=== PATIENT | male | born 1975 | race American Indian/Alaskan Native ===

== ENCOUNTER 2018-10-14 08:07 | Emergency (ER) | payer OTHER ==
[2018-10-14 08:14] VITALS: BP 169/94
--- NOTE | 2018-10-14 08:21 | Emergency Department Report ---
Upper Extremity - [facility] Chief Complaint: Extremity Injury, Upper Stated Complaint: R ELBOW/ARM PAIN Time Seen by Provider: 10/14/18 08:18 ED Review of Systems ROS: Stated complaint: R ELBOW/ARM PAIN Other details as noted in HPI ED Past Medical Hx - Past Medical History Previous Medical History?: Yes Additional medical history: chronic back pain - Surgical History Past Surgical History?: No - Social History Smoking Status: Current Every Day Smoker Substance Use Type: Alcohol, Marijuana - Medications Home Medications: Home Medications Medication Instructions Recorded Confirmed Last Taken Type HYDROcodone/APAP 7.5-325 [[place] 1 each PO Q6HR PRN #30 tablet 12/15/13 Unknown Rx 7.5/325 mg] Acetaminophen/Codeine 1 tab PO Q6H PRN #10 tab 05/19/14 Unknown Rx [Acetaminophen-Codeine #3 TAB] Cyclobenzaprine [Flexeril 10mg] 10 mg PO TID PRN #20 tablet 05/19/14 Unknown Rx Ibuprofen [Motrin] 800 mg PO Q8H PRN #30 tablet 05/19/14 Unknown Rx Ibuprofen [Motrin 800 MG tab] 800 mg PO TID PRN #12 tablet 10/14/18 Unknown Rx Upper Extremity Exam - Exam General: Vital signs noted. No distress. Alert and acting appropriately. ED Course Vital Signs 10/14/18 08:10 Temperature 98 F Pulse Rate 84 Respiratory 18 Rate Blood Pressure 169/94 O2 Sat by Pulse 98 Oximetry ED Medical Decision Making - Radiology Data Radiology results: report reviewed X-ray of right elbow to include proximal forearm and distal arm dictated by radiologist and report reviewed by myself. Please see details below Findings [facility] [address] [place] [address] XRay Report Signed Patient: LI MCDANIELS MR#: [id number] 4 : 1975 Acct:[id number] Age/Sex: 43 / M ADM Date: 10/14/18 Loc: ED Attending Dr: Ordering Physician: DERRICK MARCELO Date of Service: 10/14/18 Procedure(s): XR elbow 3+V RT Accession Number(s): [id number] cc: DERRICK MARCELO Fluoro Time In Minutes: PROCEDURE: XR ELBOW 3+V RT TECHNIQUE: Right elbow radiographs, 3 views. HISTORY: Injury with pain and swelling. COMPARISONS: None currently available. FINDINGS: There is no acute fracture. There is no evidence for healing fracture. There is no acute dislocation. No significant arthrosis. Anterior and posterior fat pads are unremarkable. No significant joint effusion. Posterior olecranon enthesophyte. There is no cortical destruction to suggest osteomyelitis. There are no suspicious osseous lesions. There are no radiopaque foreign objects. IMPRESSION: * No acute osseous findings. This document is electronically signed by Jj Santiago MD., October 14 2018 09:19:42 AM ET Transcribed By: TYM Dictated By: JJ SANTIAGO MD Electronically Authenticated By: JJ SANTIAGO MD Signed Date/Time: 10/14/18920 DD/ 1 TD/TT: 10/14/18845 - Medical Decision Making 43-year-old male here for right elbow pain 4 days after heavy lifting at work. He reports some swelling. Patient was evaluated by myself and he has no swelling in but he does have tenderness to palpate to his distal arm and proximal forearm. Normal range of motion in all extremities without physical findings for vascular abnormalities. Patient was given Motrin in the emergency room which helped his pain. X-ray finding in this report no acute abnormalities or soft tissue swelling. This was discussed with patient to include diagnosis, treatment plan, medication, rice protocol and x-ray and he voiced understanding. Patient discharged home in stable condition with prescriptions for Motrin to take with food and to follow-up with primary care physician in 2-3 days and if he does not have one to follow-up with outside Medical Center. Patient is stable and pain-free and discharged home in stable condition - Differential Diagnosis fracture versus dislocation versus strain, MSK pain Critical care attestation.: If time is entered above; I have spent that time in minutes in the direct care of this critically ill patient, excluding procedure time. ED Disposition Clinical Impression: Muscle strain of right upper extremity Qualifiers: Encounter type: initial encounter Qualified Code(s): S46.911A - Strain of unspecified muscle, fascia and tendon at shoulder and upper arm level, right arm, initial encounter Disposition: - TO HOME OR SELFCARE Is pt being admited?: No Does the pt Need Aspirin: No Condition: Stable Instructions: Muscle Strain (ED), RICE Therapy (ED), Arthralgia (ED) Additional Instructions: Please hold this and instruction rice therapy. Take Motrin for pain and please ensure he takes this medication with food as it can cause irritation to stomach lining. Please follow-up with your primary care physician in 2-3 days and if he do not have one he can follow-up with outside Medical Center. If he condition worsens, to include redness, swelling, limited movement to affect his area, please return to emergency room [facility] Prescriptions: Ibuprofen [Motrin 800 MG tab] 800 mg PO TID PRN #12 tablet PRN Reason: Pain Referrals: [facility] [Outside] - 2-3 Days Forms: Work/School Release Form(ED)
[2018-10-14] MEDS ORDERED: IBUPROFEN PO ONE (08:23)
--- NOTE | 2018-10-14 09:21 | XRay Report ---
PROCEDURE: XR ELBOW 3+V RT TECHNIQUE: Right elbow radiographs, 3 views. HISTORY: Injury with pain and swelling. COMPARISONS: None currently available. FINDINGS: There is no acute fracture. There is no evidence for healing fracture. There is no acute dislocation. No significant arthrosis. Anterior and posterior fat pads are unremarkable. No significant joint effusion. Posterior olecranon enthesophyte. There is no cortical destruction to suggest osteomyelitis. There are no suspicious osseous lesions. There are no radiopaque foreign objects. IMPRESSION: * No acute osseous findings. This document is electronically signed by Jj Garzon MD., October 14 2018 09:19:42 AM ET
== END 2018-10-14 10:06 | disposition home or self-care (01) ==
LOC: ED 08:07
DX: S46.911A Strain of unspecified muscle, fascia and tendon at shoulder and upper arm level, right arm, initial encounter (principal); G89.29 Other chronic pain; F17.200 Nicotine dependence, unspecified, uncomplicated; F12.10 Cannabis abuse, uncomplicated; X58.XXXA Exposure to other specified factors, initial encounter; Y93.89 Activity, other specified; Y92.89 Other specified places as the place of occurrence of the external cause; Y99.8 Other external cause status

== ENCOUNTER 2018-12-27 07:47 | Emergency (ER) | payer SELFPAY ==
[2018-12-27] MEDS ORDERED: ASPIRIN PO ONE (08:02)
--- NOTE | 2018-12-27 08:26 | XRay Report ---
CHEST 1 VIEW INDICATION: Chest Pain. COMPARISON: None FINDINGS: Support devices: None. Heart: Within normal limits. Lungs/Pleura: No acute air space or interstitial disease. Additional findings: None. IMPRESSION: Normal AP chest. Signer Name: Chirag Young Jr, MD Signed: 12/27/2018 8:22 AM Workstation Name: [id number]
[2018-12-27 09:00] LABS: Basophils % (Auto) 0.5 % (0.0-1.8); Eosinophils # (Auto) 0.1 K/mm3 (0.0-0.4); Eosinophils % (Auto) 1.8 % (0.0-4.3); Hemoglobin 16.4 gm/dl (11.8-15.2); Lymphocytes # (Auto) 0.9 K/mm3 (1.2-5.4); Lymphocytes % (Auto) 19.6 % (13.4-35.0); Mean Corpuscular HGB Conc 33 % (32-34); Mean Corpuscular Volume 92 fl (84-94); Monocytes # (Auto) 0.5 K/mm3 (0.0-0.8); Monocytes % (Auto) 11.8 % (0.0-7.3); Platelet Count 233 K/mm3 (140-440); Red Blood Count 5.33 M/mm3 (3.65-5.03); Red Cell Distribution Width 15.9 % (13.2-15.2)
[2018-12-27 09:23] LABS: BUN/Creatinine Ratio 10; Blood Urea Nitrogen 9 mg/dL (9-20); Calcium 8.8 mg/dL (8.4-10.2); Hemolysis Index 10
--- NOTE | 2018-12-27 11:07 | Emergency Department Report ---
ED Chest Pain HPI - General Chief Complaint: Chest Pain Stated Complaint: CHEST PAIN Time Seen by Provider: 12/27/18 10:01 Source: patient Mode of arrival: Ambulatory Limitations: No Limitations - History of Present Illness Initial Comments: Mr. Alexandre is a healthy 43-year-old male with history of tobacco abuse who presents with left-sided chest pain sharp after sudden lifting movement at work. Pain is reducible with certain positions. Denies shortness of breath. Denies palpitations. Denies nausea. No previous history of cardiac disease. No history of hypertension dyslipidemia diabetes mellitus. No family history of heart disease. Has had previous history of chest strain with lifting at work. MD Complaint: chest pain -: Sudden Onset: during rest Pain Location: left chest Severity scale (0 -10): 5 Quality: sharp Consistency: constant Improves With: nothing Worsens With: movement Treatments Prior to Arrival: none - Related Data Previous Rx's Medication Instructions Recorded Last Taken Type HYDROcodone/APAP 7.5-325 [[place] 1 each PO Q6HR PRN #30 tablet 12/15/13 Unknown Rx 7.5/325 mg] Acetaminophen/Codeine 1 tab PO Q6H PRN #10 tab 05/19/14 Unknown Rx [Acetaminophen-Codeine #3 TAB] Cyclobenzaprine [Flexeril 10mg] 10 mg PO TID PRN #20 tablet 05/19/14 Unknown Rx Ibuprofen [Motrin] 800 mg PO Q8H PRN #30 tablet 05/19/14 Unknown Rx Ibuprofen [Motrin 800 MG tab] 800 mg PO TID PRN #12 tablet 10/14/18 Unknown Rx Allergies Allergy/AdvReac Type Severity Reaction Status Date / Time No Known Allergies Allergy Unverified 12/15/13 12:41 Heart Score - HEART Score History: Slightly suspicious EKG: Non-specific Age: < 45 Risk factors: 1-2 risk factors Troponin: < normal limit HEART Score: 2 ED Review of Systems ROS: Stated complaint: CHEST PAIN Other details as noted in HPI Comment: All other systems reviewed and negative Constitutional: denies: fever, malaise Respiratory: denies: cough Cardiovascular: chest pain ED Past Medical Hx - Past Medical History Previous Medical History?: No Additional medical history: chronic back pain - Surgical History Past Surgical History?: No - Family History Family history: hypertension, other (father with history of colon cancer) - Social History Smoking Status: Current Every Day Smoker Substance Use Type: Alcohol, Marijuana - Medications Home Medications: Home Medications Medication Instructions Recorded Confirmed Last Taken Type HYDROcodone/APAP 7.5-325 [[place] 1 each PO Q6HR PRN #30 tablet 12/15/13 Unknown Rx 7.5/325 mg] Acetaminophen/Codeine 1 tab PO Q6H PRN #10 tab 05/19/14 Unknown Rx [Acetaminophen-Codeine #3 TAB] Cyclobenzaprine [Flexeril 10mg] 10 mg PO TID PRN #20 tablet 05/19/14 Unknown Rx Ibuprofen [Motrin] 800 mg PO Q8H PRN #30 tablet 05/19/14 Unknown Rx Ibuprofen [Motrin 800 MG tab] 800 mg PO TID PRN #12 tablet 10/14/18 Unknown Rx ED Physical Exam - General Limitations: No Limitations General appearance: alert, in no apparent distress, other (appears well healthy comfortable) - Head Head exam: Present: atraumatic, normocephalic - Eye Eye exam: Present: normal appearance - ENT ENT exam: Present: mucous membranes moist - Neck Neck exam: Present: normal inspection, full ROM - Respiratory Respiratory exam: Present: normal lung sounds bilaterally. Absent: respiratory distress, wheezes, rales, rhonchi - Cardiovascular Cardiovascular Exam: Present: regular rate, normal rhythm. Absent: systolic murmur, diastolic murmur, rubs, gallop - GI/Abdominal GI/Abdominal exam: Present: soft, normal bowel sounds. Absent: distended, tenderness, guarding, rebound - Rectal Rectal exam: Present: deferred - Extremities Exam Extremities exam: Present: normal inspection - Back Exam Back exam: Present: normal inspection - Neurological Exam Neurological exam: Present: alert, oriented X3 - Psychiatric Psychiatric exam: Present: normal affect, normal mood - Skin Skin exam: Present: warm, dry, intact, normal color. Absent: rash ED Course Vital Signs 12/27/18 12/27/18 12/27/18 07:59 08:56 08:58 Temperature 98.8 F 98.6 F Pulse Rate 82 60 Respiratory 18 18 18 Rate Blood Pressure 160/92 Blood Pressure 144/83 [Left] O2 Sat by Pulse 97 96 97 Oximetry 12/27/18 11:46 Temperature Pulse Rate 55 L Respiratory 19 Rate Blood Pressure Blood Pressure 151/88 [Left] O2 Sat by Pulse 97 Oximetry ED Medical Decision Making - Lab Data Result diagrams: 12/27/18 08:25 12/27/18 08:25 Laboratory Results - last 24 hr 12/27/18 12/27/18 12/27/18 08:25 08:25 11:04 WBC 4.3 L RBC 5.33 H Hgb 16.4 H Hct 49.0 H MCV 92 MCH 31 MCHC 33 RDW 15.9 H Plt Count 233 Lymph % (Auto) 19.6 [place] % (Auto) 11.8 H Eos % (Auto) 1.8 Baso % (Auto) 0.5 Lymph # 0.9 L [place] # 0.5 Eos # 0.1 Baso # 0.0 Seg Neutrophils % 66.3 Seg Neutrophils # 2.9 Sodium 143 Potassium 4.1 Chloride 104.6 Carbon Dioxide 23 Anion Gap 20 BUN 9 Creatinine 0.9 Estimated GFR > 60 BUN/Creatinine Ratio 10 Glucose 83 Calcium 8.8 Troponin T < 0.010 < 0.010 - EKG Data -: EKG Interpreted by Me - EKG Data 12/27/18 11:07 EKG obtained 0753 Normal sinus rhythm rate 75 beats a minute normal axis normal intervals positive LVH Poor R wave progression in the anterior leads - Radiology Data Radiology results: report reviewed Mr. Alexandre presents with atypical chest pain. Pain is musculoskeletal in nature. Heart score 2. PERC negative for PE. Our administrative team has arranged for outpatient cardiology referral. Given return precautions. Given reassurance. Recommended NSAIDS [id number] Critical care attestation.: If time is entered above; I have spent that time in minutes in the direct care of this critically ill patient, excluding procedure time. ED Disposition Clinical Impression: Chest pain Disposition: DC-01 TO HOME OR SELFCARE Is pt being admited?: No Does the pt Need Aspirin: No Condition: Good Instructions: Chest Pain (ED), Hypertension (ED) Referrals: [facility] [Outside] - 3-5 Days Forms: Work/School Release Form(ED)
[2018-12-27] MEDS ORDERED: IBUPROFEN PO ONE (11:09)
[2018-12-27 11:47] VITALS: BP 151/88
== END 2018-12-27 11:47 | disposition home or self-care (01) ==
LOC: ED 07:47
DX: R07.89 Other chest pain (principal); M54.9 Dorsalgia, unspecified; G89.29 Other chronic pain; F17.200 Nicotine dependence, unspecified, uncomplicated; F12.10 Cannabis abuse, uncomplicated; Z79.899 Other long term (current) drug therapy
CPT/HCPCS: 36415; 71045; 80048; 84484; 85025; 93005; 93010

== ENCOUNTER 2019-04-16 21:10 | Emergency (ER) | payer SELFPAY | END 2019-04-16 22:00 | disposition left against medical advice (07) | LOC: ED 21:10 | DX: M25.559 Pain in unspecified hip (principal); Z53.21 Procedure and treatment not carried out due to patient leaving prior to being seen by health care provider ==